=== PATIENT | female | born 1965 | race Caucasian/White ===

== ENCOUNTER → 2018-08-25 | Outpatient (CLI) | payer OTHER ==
--- NOTE | 2018-08-25 10:14 | RADIOLOGY IMAGING REPORT ---
[facility] PATIENT NAME: Mariel Talley : 1965 MR: [id number] V: [id number] EXAM DATE: ORDERING PHYSICIAN: JAY DAHL TECHNOLOGIST: Location: [facility] Patient: Mariel Talley : 1965 Visit/Account:[id number] Date of Sevice: 08/25/2018 DEXA Scan 08/25/2018 9:00 AM HISTORY: History of osteoporosis. Post hysterectomy. Comparison: None. HIP: Bone mineral density (BMD) measured in the Left total hip region correlates with a Z-score -0.1 and a T-score of -0.6 which is within normal range as defined by the World Health Organization. The corre sponding risk of fracture in the hip is increased less than 2 times compared with a young adult refer ence population. Bone mineral density (BMD) measured in the Femoral Neck region measures 0.902 g/cm2. T-score is -1.0 . FOREARM: The bone mineral density (BMD) measured in the ULTRADISTAL Left forearm, where trabecular bone predom inates, correlates with a Z-score of -1.0 and a T-score of -1.2 which is mildly osteopenic as defined by the World Health Organization. The corresponding risk of fracture in the distal forearm is incre ased 2-3 times compared with a young adult reference population. The bone mineral density (BMD) in the MIDSHAFT of the forearm, where cortical bone predominates, asuncion elates with a Z-score of 0.8 and a T-score of 0.6 which is normal as defined by the World Health Orga nization. The corresponding risk of fracture in the midshaft of the forearm is not increased compared with a young adult reference population. Impression: 1. Left Total Hip: Within normal range. 2. Femoral Neck: Bone Mineral Density is 0.902 g/cm2. Mild osteopenia. 3. Left Forearm: Normal. The next DEXA scan of this patient should include the following sites: Forearm and hip. FRAX? WHO Fracture Risk Assessment Tool link: <http://www.shef.ac.uk/FRAX/tool.jsp?[email or web address]> PLEASE NOTE: 1) The World Health Organization defines low BMD as follows: T-score Normal > -1 Osteopenia < -1 and > -2.5 Osteoporosis < -2.5 without fractures Established osteoporosis < -2.5 with fractures 2) In general, you may wish to consider: Diagnosis Treatment Follow-up DEXA Normal BMD Prevention 2-3 years Osteopenia Prevention/therapy 1-2 years Osteoporosis Therapy Yearly 3) Fracture risk estimated from the T-score is more accurate for vertebral fractures (often spontane ous) than for hip fractures. Report Dictated By: Gary Ramírez MD at 08/25/2018 10:08 AM Report E-Signed By: Gary Ramírez MD at 08/25/2018 10:11 AM KELLYN:EVON
== END ==
LOC: RAD 08:45
PROVIDERS: ATTEND Family Medicine
DX: M85.88 Other specified disorders of bone density and structure, other site (principal)
CPT/HCPCS: 77080